=== PATIENT | male | born 1995 | race Caucasian/White ===

== ENCOUNTER 2018-09-14 22:47 | Emergency (ER) | payer OTHER ==
[2018-09-14] MEDS ORDERED: NS 0.9% 1000 ML* 1,000 ML IV ONE (23:20)
[2018-09-14] MEDS ORDERED: Al Hydrox/Mg Hydrox/Simet LIQ* 30 ML UDC PO ONE (23:20)
[2018-09-14] MEDS ORDERED: DICYCLOMINE HCL* 20 MG/2 ML VIAL IM ONE (23:21)
[2018-09-14] MEDS ORDERED: Lidocaine 2% VISCOUS* 15 ML UDC PO ONE (23:21)
--- NOTE | 2018-09-14 23:27 | ED ---
Abdominal Pain/Male - HPI Summary HPI Summary: This pt is a 23 y/o male presenting to [facility] c/o sudden onset of severe abd pain today, now resolved. Pt reports he felt well all day today. He notes he had sudden onset of abd pain the "worst in his life" after he drank beer today. He states now he barely has pain. Pt states yesterday he felt very nauseous after eating a lot of food but it resolved after he went to sleep. Pt was seen 5 days ago at a hospital in [place] for low grade fever, nausea, and vomiting. He states he couldn't urinate or have a bowel movement for 24 hours. Pt had blood work that showed elevated WBC and an US where his appendix couldn' t be seen. His mother refused a CT scan and pt was discharged home that same day. Today pt denies fever, chest pain, SOB, diarrhea. His last bowel movement was today. - History of Current Complaint Chief Complaint: EDAbdPain Stated Complaint: ABD PAIN Time Seen by Provider: 09/14/18 23:07 Hx Obtained From: Patient Onset/Duration: Lasting Minutes, Resolved Timing: Lasting Minutes Severity Initially: Severe Severity Currently: None Pain Intensity: 0 Pain Scale Used: 0-10 Numeric Location: Diffuse Radiates: No Aggravating Factor(s): Nothing Alleviating Factor(s): Spontaneous Resolution Associated Signs And Symptoms: Positive: Nausea - yesterday. Negative: Fever, Chest Pain, Constipation, Vomiting, Diarrhea - Allergies/Home Medications Allergies/Adverse Reactions: Allergies Allergy/AdvReac Type Severity Reaction Status Date / Time No Known Allergies Allergy Verified 09/14/18 22:58 PMH/Surg Hx/FS Hx/Imm Hx Endocrine/Hematology History: Denies: Hx Diabetes Cardiovascular History: Denies: Hx Hypertension Infectious Disease History: No Infectious Disease History: Denies: Traveled Outside the [place] in Last 30 Days - Family History Known Family History: Negative: Cardiac Disease, Hypertension, Diabetes - Social History Alcohol Use: Occasionally Substance Use Type: Reports: None Smoking Status (MU): Never Smoked Tobacco Review of Systems Negative: Fever, Chills Negative: Chest Pain Negative: Shortness Of Breath Positive: Abdominal Pain. Negative: Diarrhea All Other Systems Reviewed And Are Negative: Yes Physical Exam - Summary Physical Exam Summary: VITAL SIGNS: Reviewed. GENERAL: Patient is a well-developed and nourished male who is lying comfortable in the stretcher. Patient is not in any acute respiratory distress. HEAD AND FACE: No signs of trauma. No ecchymosis, hematomas or skull depressions. No sinus tenderness. EYES: PERRLA, EOMI x 2, No injected conjunctiva, no nystagmus. EARS: Hearing grossly intact. Ear canals and tympanic membranes are within normal limits. MOUTH: Oropharynx within normal limits. NECK: Supple, trachea is midline, no adenopathy, no JVD, no carotid bruit, no c- spine tenderness, neck with full ROM. CHEST: Symmetric, no tenderness at palpation LUNGS: Clear to auscultation bilaterally. No wheezing or crackles. CVS: Regular rate and rhythm, S1 and S2 present, no murmurs or gallops appreciated. ABDOMEN: Soft, epigastric tenderness. No signs of distention. No rebound no guarding, and no masses palpated. Bowel sounds are normal. EXTREMITIES: FROM in all major joints, no edema, no cyanosis or clubbing. NEURO: Alert and oriented x 3. No acute neurological deficits. Speech is normal and follows commands. SKIN: Dry and warm Triage Information Reviewed: Yes Vital Signs On Initial Exam: Initial Vitals Temp Pulse Resp BP Pulse Ox 98.7 F 87 16 163/116 97 09/14/18 22:55 09/14/18 22:55 09/14/18 22:55 09/14/18 22:55 09/14/18 22:55 Vital Signs Reviewed: Yes Diagnostics - Vital Signs Vital Signs Temp Pulse Resp BP Pulse Ox 09/14/18 22:55 98.7 F 87 16 163/116 97 - Laboratory Result Diagrams: 09/14/18 23:30 09/14/18 23:30 Lab Statement: Any lab studies that have been ordered have been reviewed, and results considered in the medical decision making process. - Radiology Abdomen XR Radiology Interpretation Completed By: ED Physician Summary of Radiographic Findings: Increased stool in the colon, consistent with constipation. Pending official radiology report. - Ultrasound No standard instances Ultrasound Interpretation Completed By: Radiologist Summary of Ultrasound Findings: Gallbladder US IMPRESSION: No sonographic findings to correlate with patient's symptomatology. Dr. Garcia has reviewed this report. Abdominal Pain Fem Course/Dx - Course Assessment/Plan: Pt is a 23 y/o male who presents with sudden onset of severe abd pain today, now resolved. Pt reports he felt well all day today. He notes he had sudden onset of abd pain the "worst in his life" after he drank beer today. He states now he barely has pain. Blood work and UA obtained. Abdomen XR shows increased stool in the colon, consistent with constipation. Pending official radiology report. Gallbladder ultrasound shows no sonographic findings to correlate with patient's symptomatology. In the ED course the pt was given IV fluids, GI cocktail, Bentyl, dulcolax supp, magnesium citrate. He will be discharged home with follow up from his PCP in 1-2 days. Pt was instructed to return to the ED for any worsening or new symptoms. - Diagnoses Provider Diagnoses: Constipation Discharge - Sign-Out/Discharge Documenting (check all that apply): Patient Departure - Discharge home - Discharge Plan Condition: Stable Disposition: HOME Patient Education Materials: Constipation (ED) Referrals: [facility] [Provider Group] Additional Instructions: Please follow up with your primary care provider in 1-2 days. RETURN TO EMERGENCY DEPARTMENT FOR ANY NEW OR WORSENING SYMPTOMS. - Attestation Statements Document Initiated by Scribe: Yes Documenting Scribe: Neris Kelly Provider For Whom Hanane is Documenting (Include Credential): Jose Olivas MD Scribe Attestation: Neris Nieto, scribed for Jose Olivas MD on 09/15/18 at 0235. Status of Scribe Document: Ready
[2018-09-14 23:36] LABS: ABS Basophils 0 10^3/ul (0-0.2); ABS Eosinophils 0.1 10^3/ul (0-0.6); ABS Lymphocytes 3.2 10^3/ul (1.0-4.8); ABS Monocytes 0.6 10^3/ul (0-0.8); ABS Neutrophils 3.5 10^3/ul (1.5-7.7); ABS Nucleated RBC 0 10^3/ul; Eosinophil % 0.9 %; Hematocrit 46 % (42-52); Hemoglobin 16.2 g/dl (14.0-18.0); Lymphocyte % 43.1 %; Mean Corpuscular HGB Conc 35 g/dl (31-36); Mean Corpuscular Hemoglobin 31 pg (27-31); Mean Corpuscular Volume 88 fL (80-94); Mean Platelet Volume 8.3 fL (7.4-10.4); Nucleated Red Blood Cells % 0.1; Platelet Count 303 10^3/ul (150-450); Red Blood Count 5.29 10^6/ul (4.00-5.40); Red Cell Distribution Width 13 % (10.5-15); White Blood Count 7.5 10^3/ul (3.5-10.8)
[2018-09-14 23:53] LABS: Albumin 4.6 g/dL (3.2-5.2); Albumin/Globulin Ratio 1.5 (1-3); BUN/Creatinine Ratio 12.6 (8-20); C Reactive Protein 1.7 mg/L (<8.01); Calcium 9.5 mg/dL (8.6-10.3); EGFR Non-African American 108.7 (>60); Potassium 3.8 mmol/L (3.5-5.0); Total Bilirubin 0.4 mg/dL (0.2-1.0); Total Protein 7.6 g/dL (6.4-8.9)
[2018-09-15 00:54] VITALS: BP 123/63
[2018-09-15 01:01] LABS: Urine Appearance Clear; Urine Bilirubin Negative (Negative); Urine Blood Negative (Negative); Urine Color Colorless; Urine Glucose Negative (Negative); Urine Ketones Negative (Negative); Urine Nitrite Negative (Negative); Urine Protein Negative (Negative); Urine Specific Gravity 1.002 (1.010-1.030); Urine Urobilinogen Negative (Negative)
[2018-09-15] MEDS ORDERED: Magnesium CITRATE* 300 ML BTL PO ONE (01:50)
[2018-09-15] MEDS ORDERED: Bisacodyl SUPP* 10 MG SUPP PR ONE (01:51)
== END 2018-09-15 02:43 | disposition home or self-care (01) ==
LOC: ED 22:47
DX: K59.00 Constipation, unspecified (principal); R11.0 Nausea
CPT/HCPCS: 36415; 74019; 76705; 80053; 81003; 82150; 83690; 83735; 85025; 86140; 96360; 96361; 96372; 99283; A9270-GY; J0500